=== PATIENT | female | born 1950 | race Caucasian/White ===

== ENCOUNTER 2017-06-09 16:49 | Emergency (ER) | payer OTHER ==
[2017-06-09 16:49] VITALS: BP 158/101
[2017-06-09] MEDS ORDERED: IV NORMAL SALINE 1,000ML 1,000 ML IV SCH (17:41)
[2017-06-09] MEDS ORDERED: 0.9 % SODIUM CHLORIDE 10 ML DISP.SYRIN. IV PRN (17:45)
--- NOTE | 2017-06-09 17:53 | PHYS DOC ---
Past History Past Medical History: Hypertension Past Surgical History: Tonsillectomy, Other Smoking: Non-smoker Alcohol Use: Occasionally Drug Use: None Adult General Chief Complaint Chief Complaint: abdominal pain HPI HPI 66-year-old female patient complaining of gradual onset of left lower quadrant and groin pain since this morning as a constant and sharp pain with radiation to left flank that gradually getting worse. Patient states the pain getting worse with movement and urination and complaining of urinary frequency without hematuria and dysuria. Patient rated her pain 9/10 and denies fever and chills, diarrhea and constipation, history of the same pain, injury and trauma. Review of Systems Review of Systems Constitutional: Denies fever or chills [] Eyes: Denies change in visual acuity, redness, or eye pain [] HENT: Denies nasal congestion or sore throat [] Respiratory: Denies cough or shortness of breath [] Cardiovascular: No additional information not addressed in HPI [] GI: Reports abdominal pain, nausea, denies vomiting, bloody stools or diarrhea [ ] : Denies dysuria or hematuria [] Musculoskeletal: Denies back pain or joint pain [] Integument: Denies rash or skin lesions [] Neurologic: Denies headache, focal weakness or sensory changes [] Endocrine: Denies polyuria or polydipsia [] All other systems were reviewed and found to be within normal limits, except as documented in this note. Current Medications Current Medications Current Medications Medications (Trade) Dose Ordered Sig/Shaheen Start Time Stop Time Status Last Admin Dose Admin Fentanyl Citrate (Fentanyl 2ml Vial) 50 mcg 1X ONCE 06/09/17 18:00 06/09/17 18:01 Ondansetron HCl (Zofran) 4 mg 1X ONCE 06/09/17 18:00 06/09/17 18:01 Sodium Chloride (Normal Saline Flush) 10 ml QSHIFT PRN 06/09/17 17:45 Allergies Allergies Allergies Coded Allergies Type Severity Reaction Last Updated Verified Tetanus Vaccines & Toxoid Allergy Severe sob-itching 01/03/14 No Oxycodone Allergy Intermediate itching 01/03/14 No acetaminophen Allergy Intermediate itching 01/03/14 No aspirin Allergy Intermediate itching 01/03/14 No morphine Allergy Intermediate itching 01/03/14 No moxifloxacin Allergy Intermediate itching 01/03/14 No Physical Exam Physical Exam Constitutional: Well developed, well nourished, mild distress, non-toxic appearance, anxious. [] HENT: Normocephalic, atraumatic, bilateral external ears normal, oropharynx moist, no oral exudates, nose normal. [] Eyes: PERRLA, EOMI, conjunctiva normal, no discharge. [] Neck: Normal range of motion, no tenderness, supple, no stridor. [] Cardiovascular:Heart rate regular rhythm, no murmur [] Lungs & Thorax: Bilateral breath sounds clear to auscultation [] Abdomen: Bowel sounds normal, soft, left lower quadrant and groin tenderness without palpebral mass, no masses, no pulsatile masses. [] Skin: Warm, dry, no erythema, no rash. [] Back: No tenderness, no CVA tenderness. [] Extremities: No tenderness, no cyanosis, no clubbing, ROM intact, no edema. [] Neurologic: Alert and oriented X 3, normal motor function, normal sensory function, no focal deficits noted. [] Psychologic: Affect normal, judgement normal, mood normal. [] EKG EKG [] Radiology/Procedures Radiology/Procedures [] Course & Med Decision Making Course & Med Decision Making Pertinent Labs and Imaging studies are pending. Patient care transferred to Dr. Rayo at 1800.[] Patient signed out to me at 1800 shift change. Prior ER physician advises the patient came with symptoms consistent with possible left-sided pyelonephritis versus ureterolithiasis. Labs and CT are pending and the patient is resting comfortably in her vital signs are stable. On my evaluation she has a positive Dalton's sign on the left with some suprapubic tenderness otherwise her physical exam is unremarkable. PATIENT: AMOS COYNE V ACCOUNT: [id number] : 1950 LOCATION: ER AGE: 66 SEX: F EXAM STATUS: REG ER ORD. PHYSICIAN: STEVEN ARGUETA MD REASON: left lower quadrant pain PROCEDURE: CT ABDOMEN PELVIS WO CONTRAST Exam performed: CT scan of the abdomen and pelvis without contrast. Clinical Indication: Left lower quadrant abdominal pain, left flank pain renal disease. Date of Service: 06/09/2017 . Comparison: None available Technique: Contiguous helical acquisitions are obtained through the abdomen and pelvis without oral or IV contrast. Sagittal and coronal reformatted images are obtained and reviewed. CT abdomen findings: The lung bases are essentially clear. The visualized heart is normal. Lack of IV contrast limits evaluation of abdominal viscera, however the liver, spleen, pancreas and gallbladder appear normal. Both adrenal glands and bilateral kidneys are normal in size. There is no nephrolithiasis or hydronephrosis. No perinephric stranding is seen. Aorta is normal in caliber demonstrating mild atheromatous calcification. No retroperitoneal or mesenteric lymphadenopathy. Small and large bowel loops are nondilated and unremarkable. Visualized appendix is normal. CT pelvis findings: The pelvic bowel loops are nondilated and unremarkable. The urinary bladder is decompressed. The uterus is normal. No adnexal masses. No fluid collections or pelvic lymphadenopathy. Mild spondylotic changes involving the thoracic lumbar spine. Impression: No acute intra-abdominal or pelvic process noted. Specifically no evidence of urolithiasis seen. PQRS Compliance Statement: One or more of the following individualized dose reduction techniques were utilized for this examination: 1. Automated exposure control 2. Adjustment of the mA and/or kV according to patient size 3. Use of iterative reconstruction technique Electronically signed by: Adia Merino MD (06/09/2017 7:58 PM) [facility] DICTATED AND SIGNED BY: ADIA MERINO MD DATE: 06/09/171955 CC: STEVEN ARGUETA MD; EDGARDO RODRIGUEZ MD; DO RAYO DO ~ Pertinent labs: Potassium 3.1 (40 mEq given by mouth), urinalysis with squamous epithelial contamination and products of infection I discussed these findings with the patient at length and given her symptoms and findings will treat as pyelonephritis. Patient also states that she has been advised she had chronic kidney disease stage III recently, I did provide her a copy of her blood work to take back to her PCP as her renal function is normal in the emergency department. I discussed signs and symptoms to monitor as well as [id number] and prescription medications. I discussed the need to follow-up with her PCP in 2-3 days to recheck her potassium and her questions were answered. She expressed agreement and understanding of the treatment plan. Dragon Disclaimer Dragon Disclaimer This electronic medical record was generated, in whole or in part, using a voice recognition dictation system. Departure Departure: Referrals: EDGARDO RODRIGUEZ MD (PCP) Scripts Potassium Chloride (POTASSIUM CHLORIDE) 10 Meq Capsule.er 1 CAP PO BID for 2 Days, #4 CAP 1 Refill Prov: DO RAYO DO 06/09/17 Phenazopyridine Hcl (PYRIDIUM) 100 Mg Tablet 100 MG PO TID for 2 Days, #6 TAB Prov: DO RAYO DO 06/09/17 Ciprofloxacin Hcl (CIPRO) 500 Mg Tablet 1 TAB PO BID, #20 TAB Prov: DO RAYO DO 06/09/17 STEVEN ARGUETA MD Jun 09, 2017 17:53 DO RAYO DO Jun 10, 2017 00:12
[2017-06-09] MEDS ORDERED: ONDANSETRON PF 4 MG/2 ML VIAL. IV ONE (18:00)
[2017-06-09 18:51] LABS: BASO # 0.1 x10^3/uL (0.0-0.2); BASO % 1 % (0-3); EOS # 0.2 x10^3/uL (0.0-0.7); EOS % 3 % (0-3); HEMATOCRIT 43.1 % (36.0-47.0); HEMOGLOBIN 14.5 g/dL (12.0-15.5); LYMPH # 2.8 x10^3/uL (1.0-4.8); LYMPH % 30 % (24-48); MEAN CORPUSCULAR HEMOGLOBIN 28 pg (25-35); MEAN CORPUSCULAR HGB CONC 34 g/dL (31-37); MEAN CORPUSCULAR VOLUME 84 fL (79-100); MONO # 0.8 x10^3/uL (0.0-1.1); MONO % 8 % (0-9); NEUT # 5.5 x10^3uL (1.8-7.7); NEUT % 59 % (31-73); PLATELET COUNT 318 x10^3/uL (140-400); RED BLOOD COUNT 5.16 x10^6/uL (3.50-5.40); RED CELL DISTRIBUTION WIDTH 14.3 % (11.5-14.5); WHITE BLOOD COUNT 9.3 x10^3/uL (4.0-11.0)
[2017-06-09 19:05] LABS: ALBUMIN 3.9 g/dL (3.4-5.0); ALBUMIN/GLOBULIN RATIO 0.9 (1.0-1.7); CALCIUM 9.5 mg/dL (8.5-10.1); CREATININE 0.9 mg/dL (0.6-1.0); POTASSIUM 3.1 mmol/L (3.5-5.1); TOTAL BILIRUBIN 1.1 mg/dL (0.2-1.0); TOTAL PROTEIN 8.3 g/dL (6.4-8.2)
--- NOTE | 2017-06-09 20:02 | RAD ---
Exam performed: CT scan of the abdomen and pelvis without contrast. Clinical Indication: Left lower quadrant abdominal pain, left flank pain renal disease. Date of Service: 06/09/2017 . Comparison: None available Technique: Contiguous helical acquisitions are obtained through the abdomen and pelvis without oral or IV contrast. Sagittal and coronal reformatted images are obtained and reviewed. CT abdomen findings: The lung bases are essentially clear. The visualized heart is normal. Lack of IV contrast limits evaluation of abdominal viscera, however the liver, spleen, pancreas and gallbladder appear normal. Both adrenal glands and bilateral kidneys are normal in size. There is no nephrolithiasis or hydronephrosis. No perinephric stranding is seen. Aorta is normal in caliber demonstrating mild atheromatous calcification. No retroperitoneal or mesenteric lymphadenopathy. Small and large bowel loops are nondilated and unremarkable. Visualized appendix is normal. CT pelvis findings: The pelvic bowel loops are nondilated and unremarkable. The urinary bladder is decompressed. The uterus is normal. No adnexal masses. No fluid collections or pelvic lymphadenopathy. Mild spondylotic changes involving the thoracic lumbar spine. Impression: No acute intra-abdominal or pelvic process noted. Specifically no evidence of urolithiasis seen. PQRS Compliance Statement: One or more of the following individualized dose reduction techniques were utilized for this examination: 1. Automated exposure control 2. Adjustment of the mA and/or kV according to patient size 3. Use of iterative reconstruction technique Electronically signed by: Adia Merino MD (06/09/2017 7:58 PM) [facility]
[2017-06-09] MEDS ORDERED: POTASSIUM CHLORIDE 20 MEQ TABLET.ER. PO ONE (20:30)
[2017-06-09 20:54] LABS: BACTERIA,URINE FEW /HPF (0-FEW); BILIRUBIN,URINE NEG (NEG); CLARITY,URINE HAZY; COLOR,URINE YELLOW; GLUCOSE,URINE NEG (NEG); NITRITE,URINE NEG (NEG); SQUAMOUS EPITHELIAL CELL,UR MANY /LPF; UROBILINOGEN,URINE 0.2 mg/dL (0.2 mg/dL)
[2017-06-09 20:55] LABS: HYALINE CASTS, URINE FEW /HPF
[2017-06-09] MEDS ORDERED: CIPR500T94 PO (21:36)
[2017-06-09] MEDS ORDERED: POTA10CA PO (21:36)
[2017-06-09] MEDS ORDERED: PHEN100T82 PO (21:36)
[2017-06-09] MEDS ORDERED: CIPROFLOXACIN HCL 500 MG TABLET ONE (21:44)
[2017-06-09] MEDS ORDERED: PHENAZOPYRIDINE 200 MG TABLET. PO ONE (22:00)
[2017-06-09] MEDS ORDERED: CIPROFLOXACIN HCL 500 MG TABLET PO ONE (22:00)
== END 2017-06-09 21:52 | disposition home or self-care (01) ==
LOC: ER 16:49
DX: R10.32 Left lower quadrant pain (principal); R35.0 Frequency of micturition; I10 Essential (primary) hypertension; Z88.6 Allergy status to analgesic agent; Z88.1 Allergy status to other antibiotic agents; Z88.5 Allergy status to narcotic agent; Z88.7 Allergy status to serum and vaccine
CPT/HCPCS: 36415; 74176; 80053; 81001; 83690; 85025; 87086; 96361; 96374; 96375; 99285; J2405; J3010; J7030

== ENCOUNTER 2017-07-01 09:20 | Emergency (ER) | payer OTHER ==
[~2017-07-01 09:20] MED LIST: CIPR500T94 PO; PHEN100T82 PO; POTA10CA PO
[2017-07-01] MEDS ORDERED: IPRATRPIUM/ALBUTEROL 0.5/2.5MG 3 ML NEBU. NEB ONE (10:00)
[2017-07-01] MEDS ORDERED: IV NORMAL SALINE 500ML 500 ML IV ONE (10:00)
[2017-07-01] MEDS ORDERED: 0.9 % SODIUM CHLORIDE 10 ML DISP.SYRIN. IV PRN (10:00)
[2017-07-01 10:15] LABS: BASO # 0.1 x10^3/uL (0.0-0.2); BASO % 1 % (0-3); EOS # 0.6 x10^3/uL (0.0-0.7); EOS % 7 % (0-3); HEMATOCRIT 42.6 % (36.0-47.0); HEMOGLOBIN 14.6 g/dL (12.0-15.5); LYMPH # 1.9 x10^3/uL (1.0-4.8); LYMPH % 23 % (24-48); MEAN CORPUSCULAR HEMOGLOBIN 29 pg (25-35); MEAN CORPUSCULAR HGB CONC 34 g/dL (31-37); MEAN CORPUSCULAR VOLUME 84 fL (79-100); MONO # 0.8 x10^3/uL (0.0-1.1); MONO % 9 % (0-9); NEUT % 59 % (31-73); PLATELET COUNT 311 x10^3/uL (140-400); RED BLOOD COUNT 5.08 x10^6/uL (3.50-5.40); RED CELL DISTRIBUTION WIDTH 14.3 % (11.5-14.5); WHITE BLOOD COUNT 8.4 x10^3/uL (4.0-11.0)
[2017-07-01 10:29] LABS: ALBUMIN 3.5 g/dL (3.4-5.0); ALBUMIN/GLOBULIN RATIO 0.8 (1.0-1.7); CALCIUM 9.3 mg/dL (8.5-10.1); CREATININE 1.4 mg/dL (0.6-1.0); GFR 37.9; POTASSIUM 3.8 mmol/L (3.5-5.1); TOTAL BILIRUBIN 1.3 mg/dL (0.2-1.0); TOTAL PROTEIN 7.9 g/dL (6.4-8.2)
[2017-07-01 10:32] LABS: INFLUENZA A PATIENT NEGATIVE (NEGATIVE); INFLUENZA B PATIENT NEGATIVE (NEGATIVE)
--- NOTE | 2017-07-01 10:34 | RAD ---
CHEST PA LATERAL History: Cough for a couple of days, dizziness, post medication Comparison: 07/09/2009 Findings: 2 views of the chest are submitted. There is no infiltrate, pneumothorax, or effusion. The cardiac silhouette is within normal limits in size. There is multilevel mild thoracic spondylosis. Impression: 1. No lobar consolidation is identified. Electronically signed by: Rajan Rinaldi MD (07/01/2017 10:31 AM) [id number]
--- NOTE | 2017-07-01 10:34 | RAD ---
CT of the head without contrast History:[id number] dizziness post medication Technique: Standard noncontrast images are obtained. Exposure: One or more of the following individualized dose reduction techniques were utilized for this examination: 1. Automated exposure control 2. Adjustment of the mA and/or kV according to patient size 3. Use of iterative reconstruction technique. Comparison: None Findings: Posterior fossa is unremarkable. No evidence of acute intracranial hemorrhage, mass effect, midline shift or abnormal extra-axial fluid collection. Walker-white matter distinction is intact. Ventricles unremarkable and symmetric Visualized orbits are unremarkable. Moderate mucosal thickening of the left ethmoid sinuses, partially visualized. Mild sphenoid sinus mucosal thickening. No acute calvarial abnormality Impression: No evidence of acute intracranial hemorrhage or mass effect. Paranasal sinus disease. Electronically signed by: Arnaldo Jensen MD (07/01/2017 10:31 AM) [facility]
[2017-07-01 10:43] VITALS: BP 122/42
[2017-07-01] MEDS ORDERED: LISI10TA2 PO (10:53)
--- NOTE | 2017-07-01 10:53 | PHYS DOC ---
Past History Past Medical History: Hypertension, Other Past Surgical History: Other Smoking: Non-smoker Alcohol Use: None Drug Use: None Adult General Chief Complaint Chief Complaint: DIZZY/LIGHT HEADED [facility] HPI 66-year-old female patient brought in by EMS because of dizziness. Patient states she took lisinopril 20 mg this morning for the first time and felt dizzy with standing up with generalized weakness, shortness of breath and mild nausea without chest pain, palpitation, focal neuro deficit, headache, tinnitus, fever and chills. Patient states she was able to go to work but states she felt dizzy. Patient states she diagnosed with kidney problem and seen by car pilot and was told she doesn't need any treatment. Patient states she had upper respiratory symptoms with nasal congestion and nonproductive cough for the last few days and currently taking Mucinex. Review of Systems Review of Systems Constitutional: Denies fever or chills [] Eyes: Denies change in visual acuity, redness, or eye pain [] HENT: Reports nasal congestion] Respiratory: Reports cough and shortness of breath Cardiovascular: No additional information not addressed in HPI [] GI: Denies abdominal pain, vomiting, bloody stools or diarrhea, reports nausea [ ] : Denies dysuria or hematuria [] Musculoskeletal: Denies back pain or joint pain [] Integument: Denies rash or skin lesions [] Neurologic: Denies headache, focal weakness or sensory changes, reports dizziness [] Endocrine: Denies polyuria or polydipsia [] All other systems were reviewed and found to be within normal limits, except as documented in this note. Current Medications Current Medications Current Medications Medications (Trade) Dose Ordered Sig/Shaheen Start Time Stop Time Status Last Admin Dose Admin Albuterol/ Ipratropium (Duoneb) 3 ml 1X ONCE 07/01/17 10:00 07/01/17 10:15 DC 07/01/17 10:21 3 ML Sodium Chloride 500 ml @ 0 mls/hr 1X ONCE 07/01/17 10:00 07/01/17 10:15 DC 07/01/17 10:20 500 MLS/HR Sodium Chloride (Normal Saline Flush) 10 ml QSHIFT PRN 07/01/17 10:00 Allergies Allergies Allergies Coded Allergies Type Severity Reaction Last Updated Verified Tetanus Vaccines & Toxoid Allergy Severe sob-itching 8/18/14 No Oxycodone Allergy Intermediate itching 01/03/14 No acetaminophen Allergy Intermediate itching 01/03/14 No aspirin Allergy Intermediate itching 01/03/14 No morphine Allergy Intermediate itching 01/03/14 No moxifloxacin Allergy Intermediate itching 01/03/14 No Physical Exam Physical Exam Constitutional: Well developed, well nourished,mild distress, non-toxic appearance, anxious. [] HENT: Normocephalic, atraumatic, bilateral external ears normal, oropharynx moist, pharyngeal erythema, no oral exudates, nose normal. [] Eyes: PERRLA, EOMI, conjunctiva normal, no discharge. [] Neck: Normal range of motion, no tenderness, supple, no stridor. [] Cardiovascular:Heart rate regular rhythm, no murmur [] Lungs & Thorax: Bilateral breath sounds clear to auscultation [] Abdomen: Bowel sounds normal, soft, no tenderness, no masses, no pulsatile masses. [] Skin: Warm, dry, no erythema, no rash. [] Back: No tenderness, no CVA tenderness. [] Extremities: No tenderness, no cyanosis, no clubbing, ROM intact, no edema. [] Neurologic: Alert and oriented X 3, normal motor function, normal sensory function, no focal deficits noted. [] Psychologic: Anxious, judgement normal, mood normal. [] Current Patient Data Vital Signs Vital Signs Date Time Temp Pulse Resp B/P (MAP) Pulse Ox O2 Delivery O2 Flow Rate FiO2 07/01/17 09:20 97.9 76 18 99 Room Air Lab Results Laboratory Tests Test 07/01/17 09:52 07/01/17 09:53 White Blood Count 8.4 x10^3/uL (4.0-11.0) Red Blood Count 5.08 x10^6/uL (3.50-5.40) Hemoglobin 14.6 g/dL (12.0-15.5) Hematocrit 42.6 % (36.0-47.0) Mean Corpuscular Volume 84 fL (79-100) Mean Corpuscular Hemoglobin 29 pg (25-35) Mean Corpuscular Hemoglobin Concent 34 g/dL (31-37) Red Cell Distribution Width 14.3 % (11.5-14.5) Platelet Count 311 x10^3/uL (140-400) Neutrophils (%) (Auto) 59 % (31-73) Lymphocytes (%) (Auto) 23 % (24-48) L Monocytes (%) (Auto) 9 % (0-9) Eosinophils (%) (Auto) 7 % (0-3) H Basophils (%) (Auto) 1 % (0-3) Neutrophils # (Auto) 5.0 x10^3uL (1.8-7.7) Lymphocytes # (Auto) 1.9 x10^3/uL (1.0-4.8) Monocytes # (Auto) 0.8 x10^3/uL (0.0-1.1) Eosinophils # (Auto) 0.6 x10^3/uL (0.0-0.7) Basophils # (Auto) 0.1 x10^3/uL (0.0-0.2) Sodium Level 137 mmol/L (136-145) Potassium Level 3.8 mmol/L (3.5-5.1) Chloride Level 99 mmol/L (98-107) Carbon Dioxide Level 29 mmol/L (21-32) Anion Gap 9 (6-14) Blood Urea Nitrogen 23 mg/dL (7-20) H Creatinine 1.4 mg/dL (0.6-1.0) H Estimated GFR (Cockcroft-Gault) 37.9 BUN/Creatinine Ratio 16 (6-20) Glucose Level 92 mg/dL (70-99) Calcium Level 9.3 mg/dL (8.5-10.1) Total Bilirubin 1.3 mg/dL (0.2-1.0) H Aspartate Amino Transferase (AST) 29 U/L (15-37) Alanine Aminotransferase (ALT) 29 U/L (14-59) Alkaline Phosphatase 111 U/L (46-116) Troponin I Quantitative < 0.017 ng/mL (0-0.055) Total Protein 7.9 g/dL (6.4-8.2) Albumin 3.5 g/dL (3.4-5.0) Albumin/Globulin Ratio 0.8 (1.0-1.7) L Influenza Type A (Rapid) Negative (NEGATIVE) Influenza Type B (Rapid) Negative (NEGATIVE) EKG EKG []EKG interpreted by me. EKG at 0 947 showed normal sinus rhythm at rate of [address] and T wave abnormality Radiology/Procedures Radiology/Procedures [] [address] [address] IMAGING REPORT Signed PATIENT: AMOS COYNE V ACCOUNT: [id number] : 1950 LOCATION: ER AGE: 66 SEX: F EXAM STATUS: REG ER ORD. PHYSICIAN: STEVEN ARGUETA MD REASON: dizziness PROCEDURE: CT HEAD WO CONTRAST CT of the head without contrast History:[id number] dizziness post medication Technique: Standard noncontrast images are obtained. Exposure: One or more of the following individualized dose reduction techniques were utilized for this examination: 1. Automated exposure control 2. Adjustment of the mA and/or kV according to patient size 3. Use of iterative reconstruction technique. Comparison: None Findings: Posterior fossa is unremarkable. No evidence of acute intracranial hemorrhage, mass effect, midline shift or abnormal extra-axial fluid collection. Walker-white matter distinction is intact. Ventricles unremarkable and symmetric Visualized orbits are unremarkable. Moderate mucosal thickening of the left ethmoid sinuses, partially visualized. Mild sphenoid sinus mucosal thickening. No acute calvarial abnormality Impression: No evidence of acute intracranial hemorrhage or mass effect. Paranasal sinus disease. Electronically signed by: Arnaldo Jensen MD (07/01/2017 10:31 AM) [facility] DICTATED AND SIGNED BY: ARNALDO JENSEN MD DATE: 07/01/17 1027 CC: STEVEN ARGUETA MD; EDGARDO RODRIGUEZ MD ~ [address] [address] IMAGING REPORT Signed PATIENT: AMOS COYNE V ACCOUNT: [id number] : 1950 LOCATION: ER AGE: 66 SEX: F EXAM STATUS: REG ER ORD. PHYSICIAN: STEVEN ARGUETA MD REASON: dizziness cough x's a couple of days PROCEDURE: CHEST PA & LATERAL CHEST PA LATERAL History: Cough for a couple of days, dizziness, post medication Comparison: 07/09/2009 Findings: 2 views of the chest are submitted. There is no infiltrate, pneumothorax, or effusion. The cardiac silhouette is within normal limits in size. There is multilevel mild thoracic spondylosis. Impression: 1. No lobar consolidation is identified. Electronically signed by: Du Rinaldi MD (07/01/2017 10:31 AM) [facility] DICTATED AND SIGNED BY: DU RINALDI MD DATE: 07/01/17 1030 CC: STEVEN ARGUETA MD; EDGARDO RODRIGUEZ MD ~ Course & Med Decision Making Course & Med Decision Making Pertinent Labs and Imaging studies reviewed. (See chart for details) Examination of patient in ER showed 66-year-old female patient with dizziness after taking 20 mg of lisinopril for the first time today. Patient had unremarkable physical exam, EKG, head CT, chest x-ray and labs except for mild elevation of BUN/creatinine. Patient had negative orthostatic vitals. Plan to change lisinopril to 10 mg daily and instructed to increase fluid intake I've spoken with the patient and/or caregivers. I've explained the patient's condition, diagnosis and treatment plan based on information available to me at this time. I've answered the patient's and/or caregivers questions and addressed any concerns. The patient and/or caregivers have a good understanding the patient's diagnosis, condition and treatment plan as can be expected at this point. Vital signs have been stabilized. The patient's condition is stable for discharge from the emergency department. The patient will pursue further outpatient evaluation with her primary care provider or other designated consulting physician as outlined in the discharge instructions. Patient and/or caregivers are agreeable to this plan of care and follow-up instructions have been explained in detail. The patient and/or caregivers have received these instructions in written format and expressed understanding of these discharge instructions. The patient and her caregivers are aware that if any significant change in condition or worsening of symptoms should prompt him to immediately return to this of the closest emergency department. If an emergent department is not readily available I would encourage him to call 911.] Yashira Disclaimer Dragon Disclaimer This electronic medical record was generated, in whole or in part, using a voice recognition dictation system. Departure Departure: Impression: Primary Impression: Orthostatic dizziness Additional Impressions: Medication side effects Abnormal renal function test URI (upper respiratory infection) Disposition: HOME, SELF-CARE (At 1050) Condition: IMPROVED Referrals: EDGARDO RODRIGUEZ MD (PCP) Patient Instructions: Dizziness Additional Instructions: Drink plenty of liquids Follow-up with your primary care physician in 3-5 days Return to ER if not getting better Do not take lisinopril 20 mg, takes lisinopril 10 mg daily Scripts Lisinopril (LISINOPRIL) 10 Mg Tablet 1 TAB PO DAILY, #30 TAB 5 Refills Prov: STEVEN ARGUETA MD 07/01/17 Problem Qualifiers STEVEN ARGUETA MD Jul 01, 2017 10:53
--- NOTE | 2017-07-01 19:02 | EKG ---
[address] [address] Test Date: 2017-07-01 Test Time: 09:47:31 Pat Name: AMOS COYNE Department: Room: Gender: F Summer Babysitter: : 1950 Requested By: STEVEN ARGUETA Order Number: [id number] Reading MD: Isai Cheung Measurements Intervals [place] Rate: 68 P: 0 [place]: 168 QRS: 28 QRSD: 80 T: 18 QT: 408 QTc: 439 Interpretive Statements SINUS RHYTHM NO SPECIFIC ECG ABNORMALITIES RI6.01 No previous ECG available for comparison Electronically Signed On 07-07-2017 9:06:54 HYDRAULIC PLUMBER by Isai Cheung
== END 2017-07-01 11:09 | disposition home or self-care (01) ==
LOC: ER 09:20
DX: T46.4X1A Poisoning by angiotensin-converting-enzyme inhibitors, accidental (unintentional), initial encounter (principal); R42 Dizziness and giddiness; J06.9 Acute upper respiratory infection, unspecified; I10 Essential (primary) hypertension; R94.4 Abnormal results of kidney function studies; Z88.6 Allergy status to analgesic agent; Z88.1 Allergy status to other antibiotic agents; Z88.5 Allergy status to narcotic agent; Z88.7 Allergy status to serum and vaccine; Y92.89 Other specified places as the place of occurrence of the external cause
CPT/HCPCS: 36415; 70450; 71046; 80053; 84484; 85025; 87804; 93005; 94640; 96360; 99285; J7040; J7620

== ENCOUNTER → 2020-07-18 | Outpatient (CLI) | payer MEDICARE, OTHER ==
[~2020-07-18] MED LIST changes: +LISI10TA16 PO
--- NOTE | 2020-07-18 11:43 | RAD ---
INDICATION: Screening for osteopenia/osteoporosis. Postmenopausal evaluation. COMPARISON: None. TECHNIQUE: Bone densitometry was performed through the lumbar spine and proximal femur. IMPRESSION: Lumbar Spine: BMD: 1.2 T-Score: 0.3 Range: Normal Proximal Femur: BMD: 0.93 T-Score: -0.2 Range: Normal World Health Organization Criteria for Bone Density: T-Score: > -1.0: Normal Range < -1.0 to -2.5: Osteopenic Range < -2.5: Osteoporotic Range Electronically signed by: Nghia Barrientos MD (07/18/2020 11:41 AM) [id number]
== END ==
LOC: DXRAD 10:19
PROVIDERS: ATTEND Family Medicine
DX: Z78.0 Asymptomatic menopausal state (principal)
CPT/HCPCS: 77080

== ENCOUNTER 2021-07-13 08:21 | Emergency (ER) | payer MEDICARE, OTHER ==
[~2021-07-13] VITALS: Ht 160 cm; Wt 93.0 kg
[2021-07-13 08:27] VITALS: BP 198/79
[2021-07-13] MEDS ORDERED: diphenhydrAMINE 50 MG/ML VIAL IVP ONE (09:00)
[2021-07-13] MEDS ORDERED: METOCLOPRAMIDE HCL 10 MG/2 ML VIAL. IVP ONE (09:00)
[2021-07-13] MEDS ORDERED: IV NORMAL SALINE 1,000ML 1,000 ML IV SCH (09:00)
[2021-07-13] MEDS ORDERED: MECLIZINE 12.5 MG TABLET. PO ONE (09:00)
--- NOTE | 2021-07-13 09:17 | RAD ---
AP chest. HISTORY: Nausea, vomiting, dizziness AP view of the chest was compared with a study from June 2017. The patient is not taken a deep in spiration. There are no acute infiltrates. There is no effusion. IMPRESSION: 1. No acute chest disease. Electronically signed by: Daquan John MD (07/13/2021 9:14 AM) [id number]
--- NOTE | 2021-07-13 09:19 | EKG ---
[address] [address] Test Date: 2021-07-13 Test Time: 09:14:21 Pat Name: AMOS COYNE Department: Room: Gender: F Data Center Consultant: AYAN : 1950 Requested By: ANDREI CARPENTER Order Number: [id number] Reading MD: Isai Cheung Measurements Intervals [place] Rate: 55 P: 0 [place]: 190 QRS: 25 QRSD: 76 T: 26 QT: 422 QTc: 406 Interpretive Statements SINUS RHYTHM Electronically Signed On 07-13-2021 16:24:58 CREDIT COLLECTIONS SPECIALIST by Isai Cheung
--- NOTE | 2021-07-13 09:34 | PHYS DOC ---
Past History Past Medical History: Hypertension, Other Past Surgical History: Other Additional Past Surgical Histo: L shoulder Smoking: Non-smoker Alcohol Use: None Drug Use: None General Adult EDM: Chief Complaint: DIZZY/LIGHT HEADED HPI: HPI: 70 yo F PMH HTN presents to the ed with her , (patient consents to his/her/their knowledge and involvement in pts' medical care), complains of feeling very dizzy and 6 with associated head spine stating symptoms started after sudden onset for this morning. States she woke up feeling fine. This is the third incidence of similar symptoms. Initially thought she was having food poisoning. Denies any recent upper respiratory infections. No associated earache or hearing loss. No history of head or neck injury. Review of Systems: Review of Systems: Constitutional: Denies fever or chills Eyes: Denies change in visual acuity HENT: Denies nasal congestion or sore throat Respiratory: Denies cough or shortness of breath Cardiovascular: Denies chest pain or edema GI: Denies abdominal pain, nausea, vomiting, bloody stools or diarrhea : Denies dysuria Musculoskeletal: Denies back pain or joint pain Integument: Denies rash Neurologic: Denies headache, focal weakness or sensory changes Endocrine: Denies polyuria or polydipsia Lymphatic: Denies swollen glands Psychiatric: Denies depression or anxiety Current Medications: Current Meds: Current Medications Medications (Trade) Dose Ordered Sig/Shaheen Start Time Stop Time Status Last Admin Dose Admin Diphenhydramine HCl (Benadryl) 25 mg 1X ONCE 07/13/21 09:00 07/13/21 09:02 DC Lorazepam (Ativan Inj) 1 mg 1X ONCE 07/13/21 09:00 07/13/21 09:02 DC Meclizine HCl (Antivert) 25 mg 1X ONCE 07/13/21 09:00 07/13/21 09:02 DC Metoclopramide HCl (Reglan Vial) 10 mg 1X ONCE 07/13/21 09:00 07/13/21 09:02 DC Sodium Chloride 1,000 ml @ 1,000 mls/hr Q1H 07/13/21 09:00 07/13/21 09:59 Allergies: Allergies: Allergies Coded Allergies Type Severity Reaction Last Updated Verified Tetanus Vaccines and Toxoid Allergy Severe sob-itching 01/03/14 No acetaminophen Allergy Intermediate itching 01/03/14 No aspirin Allergy Intermediate itching 01/03/14 No morphine Allergy Intermediate itching 01/03/14 No moxifloxacin Allergy Intermediate itching 01/03/14 No oxycodone Allergy Intermediate itching 01/03/14 No Physical Exam: PE: Constitutional: Well developed, well nourished, no acute distress, non-toxic ap pearance. HENT: Normocephalic, atraumatic, Eyes: EOMI, conjunctiva normal, no discharge. Neck: Normal range of motion, supple, Cardiovascular: S1/2 present, regular rhythm Lungs & Thorax: Speaking in full sentences, bilateral equal chest rise, no tach ypnea or increased work of breathing Abdomen: soft, no tenderness, Skin: Warm, dry, no erythema, no rash. [] Back: No tenderness, no CVA tenderness. [] Extremities: No tenderness, no cyanosis, no lower extremity edema Neurologic: Alert and oriented X 3, normal motor function, normal sensory function, no focal deficits noted. [] Psychologic: Affect normal, judgement normal, mood normal. [] Current Patient Data: Vital Signs: Vital Signs Date Time Temp Pulse Resp B/P (MAP) Pulse Ox O2 Delivery O2 Flow Rate FiO2 07/13/21 08:27 97.8 63 198/79 (118) 99 Room Air EKG: EKG: Sinus bradycardia 55 bpm, no axis deviation, T wave inversion lead III, normal intervals, no ST elevation or ST depression, no active chest pain Radiology/Procedures: Radiology/Procedures: IMAGING REPORT Signed PATIENT: AMOS COYNE VACCOUNT: [id number] : 1950 LOCATION: ER AGE: 70 SEX: F EXAM STATUS: REG ER ORD. PHYSICIAN: ANDREI CARPENTER DO REASON: NAUSEA AND VOMITING, DIZZINESS PROCEDURE: PORTABLE CHEST 1V AP chest. HISTORY: Nausea, vomiting, dizziness AP view of the chest was compared with a study from June 2017. The patient is not taken a deep inspiration. There are no acute infiltrates. There is no effusion. IMPRESSION: 1. No acute chest disease. Electronically signed by: Daquan John MD (07/13/2021 9:14 AM) [id number] DICTATED AND SIGNED BY: DAQUAN JOHN MD DATE: 07/13/2113 CC: GILDA TANNER; ANDREI CARPENTER DO ~MTH0 0 IMAGING REPORT Signed PATIENT: AMOS COYNE: [id number] : 1950 LOCATION: ER AGE: 70 SEX: F EXAM STATUS: REG ER ORD. PHYSICIAN: ANDREI CARPENTER DO REASON: dizziness PROCEDURE: CT HEAD WO CONTRAST CT HEAD/BRAIN WO Date: 07/13/2021 10:44 AM Clinical Indication: dizziness Comparison: None. Technique: 5 mm axial tomographic images were obtained of the head without contrast. These were viewed on brain and bone windows. One or more of the following dose reduction techniques were utilized: Automated exposure control (AEC), Adjustment of mA and/or kV according to patient size, Use of iterative reconstruction technique such as ASiR, CT scan done according to ALARA and image gently/image wisely Findings: The brain parenchyma is normal in attenuation. No intra- or extra-axial mass or fluid collection. No acute hemorrhage. The ventricles are normal in size, shape, and morphology. The ingram-white matter junction is normal. The subarachnoid cisterns are patent. The visualized paranasal sinuses are normal. The visualized portions of the orbits and globes are normal. The mastoid air cells are clear. The operational communication chief topogram shows no lytic lesion or fracture. Impression: No acute intracranial process. Electronically signed by: Du Hinson MD (07/13/2021 11:15 AM) [id number] DICTATED AND SIGNED BY: DU HINSON MD DATE: 07/13/21 1114 CC: GILDA TANNER; ANDREI CARPENTER DO ~MTH0 0 Heart Score: C/O Chest Pain: No Risk Factors: Risk Factors: DM, Current or recent (<one month) smoker, HTN, HLP, family history of CAD, obesity. Risk Scores: Score 0 - 3: 2.5% MACE over next 6 weeks - Discharge Home Score 4 - 6: 20.3% MACE over next 6 weeks - Admit for Clinical Observation Score 7 - 10: 72.7% MACE over next 6 weeks - Early Invasive Strategies Course & Med Decision Making: Course & Med Decision Making Pertinent Labs and Imaging studies reviewed. (See chart for details) Will discharge home with strict ED return precautions were given for []. Encouraged urgent outpatient follow-up with PMD and [specialist]. Life- threatening processes were considered but are low suspicion at this time, given history, physical exam and ED workup. Pt was educated on all prescription medi cations and adverse effects. All patient's questions were answered and pt was stable at time of discharge. Life/limb-threatening differential includes but is not limited to, cerebrovascular accident, cerebellar stroke, acute coronary syndrome, carbon mon oxide poisoning or other toxidrome, syncope differential including cardiac arrhythmia/PE/aortic aneurysm or dissection/ACS, Guillan Edwards syndrome, thyroid disease, infection, central and peripheral vertigo, intracranial hemorrhage, vertebrobasilar insufficiency, heat stroke, electrolyte disorder, rheumatologic or autoimmune disorder I have spoken with the patient and/or caregivers. I explained the patient's condition, diagnoses and treatment plan based on the information available to me at this time. I have answered the patient and/or caregiver's questions and addressed any concerns. The patient and/or caregivers have a good understanding of patient's diagnosis, condition and treatment plan as can be expected at this point. Vital signs have been stable. Patient's condition is stable and appropriate for discharge from the emergency department. Patient will pursue further outpatient evaluation with primary care physician or other designated or consulting physician as outlined in the discharge instructi ons. The patient and/or caregivers are agreeable to this plan of care and follow-up instructions have been explained in detail. The patient and/or caregivers have received these instructions in written form and have expressed an understanding of the discharge instructions. The patient and/or caregivers are aware that any significant change of condition or worsening of symptoms s hould prompt immediate return to this or the closest emergency department or call to 911. Yashira Disclaimer: Yashira Disclaimer: This electronic medical record was generated, in whole or in part, using a voice recognition dictation system. Departure Departure: Impression: Primary Impression: Vertigo Disposition: HOME / SELF CARE / HOMELESS Condition: STABLE Referrals: GILDA TANNER (PCP) Follow-up with your primary care physician in the next few days for reevaluation Patient Instructions: Benign Positional Vertigo, Vertigo Additional Instructions: FOLLOW UP WITH ENT: FOR DEFINITIVE MANAGEMENT of vertigo Otolaryngology [facility] [place], [address] [place] [address] [employer] [facility] [address] [address] EMERGENCY DEPARTMENT GENERAL DISCHARGE INSTRUCTIONS Thank you for coming to [facility] (ED) today and trusting us with you care. We trust that you had a positivie experience in our Emergency Department. If you wish to speak to the department management, you may call the director at [phone]. YOUR FOLLOW UP INSTRUCTIONS ARE FOLLOWS: 1. Do you have a private Doctor? If you do not have a private doctor, please ask for a resource list of physicians or clinics that may be able to assist you with follow up care. 2. The Emergency Physician has interpreted your x-rays. The X-Ray specialist will also review them. If there is a change in the findings, you will be notified in 48 hours when at all possible. 3. A lab test or culture has been done, your results will be reviewed and you will be notified if you need a change in treatment. ADDITIONAL INSTRUCTIONS AND INFORMATION: 1. Your care today has been supervised by a physician who is specially trained in emergency care. Many problems require more than one evaluation for a complete diagnosis and treatment. We recommend that you schedule your follow up appointment as recommended to ensure complete treatment of you illness or injury. If you are unable to obtain follow up care and continue to have a problem, or if your condition worsens, we recommend that you return to the ED. 2. We are not able to safely determine your condition over the phone nor are we able to give sound medical advice over the phone. For these safety reasons, if you call for medical advice we will ask you to come to the ED for further evaluation. 3. If you have any questions regarding these discharge instructions please call the ED at [phone]. SAFETY INFORMATION: In the interest of safety, wellness, and injury prevention; we encourage you to wear your sealbelt, if you smoke; quite smoking, and we encourage family to use a protective helmet for bicycling and other sporting events that present an increased risk for head injury. IF YOUR SYMPTOMS WORSEN OR NEW SYMPTOMS DEVELOP, OR YOU HAVE CONCERNS ABOUT YOUR CONDITION; OR IF YOUR CONDITION WORSENS WHILE YOU ARE WAITING FOR YOUR FOLLOW UP APPOINTMENT; EITHER CONTACT YOUR PRIMARY CARE DOCTOR, THE PHYSICIAN WHOSE NAME AND NUMBER YOU WERE GIVEN, OR RETURN TO THE ED IMMEDIATELY. Scripts Meclizine Hcl (MECLIZINE HCL) 12.5 Mg Tablet 1 TAB PO TID for vertigo, #20 TAB 0 Refills Prov: ANDREI CARPENTER DO 07/13/21 Ondansetron (ONDANSETRON ODT) 4 Mg Tab.rapdis 4 MG PO Q6HRS for Nausea/Vomiting, #15 TAB Prov: ANDREI CARPENTER DO 07/13/21 ANDREI CARPENTER DO Jul 13, 2021 09:33
[2021-07-13 09:46] LABS: BASO # 0.1 x10^3/uL (0.0-0.2); BASO % 1 % (0-3); EOS # 0.4 x10^3/uL (0.0-0.7); EOS % 4 % (0-3); HEMATOCRIT 43.6 % (36.0-47.0); HEMOGLOBIN 14.7 g/dL (12.0-15.5); LYMPH # 2.7 x10^3/uL (1.0-4.8); LYMPH % 26 % (24-48); MEAN CORPUSCULAR HEMOGLOBIN 29 pg (25-35); MEAN CORPUSCULAR HGB CONC 34 g/dL (31-37); MEAN CORPUSCULAR VOLUME 86 fL (79-100); MONO # 0.7 x10^3/uL (0.0-1.1); MONO % 7 % (0-9); NEUT # 6.4 x10^3uL (1.8-7.7); NEUT % 63 % (31-73); PLATELET COUNT 296 x10^3/uL (140-400); RED BLOOD COUNT 5.05 x10^6/uL (3.50-5.40); RED CELL DISTRIBUTION WIDTH 13.6 % (11.5-14.5); WHITE BLOOD COUNT 10.2 x10^3/uL (4.0-11.0)
[2021-07-13 10:03] LABS: CALCIUM 9.4 mg/dL (8.5-10.1); GFR 55.1; POTASSIUM 4.9 mmol/L (3.5-5.1)
[2021-07-13 10:08] LABS: ALBUMIN 3.7 g/dL (3.4-5.0); ALBUMIN/GLOBULIN RATIO 0.9 (1.0-1.7); TOTAL BILIRUBIN 1.2 mg/dL (0.2-1.0); TOTAL PROTEIN 7.6 g/dL (6.4-8.2)
[2021-07-13] MEDS ORDERED: ONDANSETRON PF 4 MG/2 ML VIAL. IVP ONE (11:00)
--- NOTE | 2021-07-13 11:18 | RAD ---
CT HEAD/BRAIN WO Date: 07/13/2021 10:44 AM Clinical Indication: dizziness Comparison: None. Technique: 5 mm axial tomographic images were obtained of the head without contrast. These were view ed on brain and bone windows. One or more of the following dose reduction techniques were utilized: A utomated exposure control (AEC), Adjustment of mA and/or kV according to patient size, Use of iterati ve reconstruction technique such as ASiR, CT scan done according to ALARA and image gently/image nielsen ly Findings: The brain parenchyma is normal in attenuation. No intra- or extra-axial mass or fluid collection. No acute hemorrhage. The ventricles are normal in size, shape, and morphology. The ingram-white matter lamont ction is normal. The subarachnoid cisterns are patent. The visualized paranasal sinuses are normal. The visualized portions of the orbits and globes are no rmal. The mastoid air cells are clear. The engine lathe operator topogram shows no lytic lesion or fracture. Impression: No acute intracranial process. Electronically signed by: Rajan Hinson MD (07/13/2021 11:15 AM) [id number]
[2021-07-13] MEDS ORDERED: MECL12.582 PO (14:01)
[2021-07-13] MEDS ORDERED: ONDA4TAB12 PO (14:01)
== END 2021-07-13 14:20 | disposition home or self-care (01) ==
LOC: ER 08:21
DX: R42 Dizziness and giddiness (principal); I10 Essential (primary) hypertension; Z88.7 Allergy status to serum and vaccine; Z88.5 Allergy status to narcotic agent; Z88.1 Allergy status to other antibiotic agents; Z88.6 Allergy status to analgesic agent
CPT/HCPCS: 36415; 70450; 71045; 80053; 84484; 85025; 93005; 96361; 96374; 96375; 99285; J1200; J2060; J2405; J2765; J7030